=== PATIENT | female | born 1990 | race American Indian/Alaskan Native ===

== ENCOUNTER 2018-05-10 08:24 | Emergency (ER) | payer MEDICAID ==
[2018-05-10 08:56] VITALS: BP 125/90
--- NOTE | 2018-05-10 10:11 | Emergency Department Report ---
ED Female HPI - General Chief complaint: Abdominal Pain Stated complaint: STOMACH PAIN Time Seen by Provider: 05/10/18 10:10 Source: patient Mode of arrival: Ambulatory Limitations: No Limitations - History of Present Illness Initial comments: This is a 27-year-old female here report vaginal discharge with follow up. She admits to having unsafe sex and she wants to be tested and treated for STD. She denies any urinary burning or frequency in reporting abdominal cramping. No alleviating or exacerbating factors. Pain as located to pelvic area and it is 2 out of 10 and intermittent. Denies any vaginal bleeding. No medication taken prior to coming to the emergency room MD Complaint: vaginal discharge, pelvic pain, possible STD Onset/Timin -: week(s) Location: suprapubic Radiation: non-radiating Severity: mild Severity scale (0 -10): 3 Quality: cramping Consistency: intermittent Improves with: none Worsens with: none Are you Now?: No Last Menstrual Period: 04/28/18 EDC: 02/02/19 Associated Symptoms: vaginal discharge, abdominal pain. denies: vaginal bleeding, nausea/vomiting, fever/chills, headaches, loss of appetite, dysuria, hematuria, rash, seizure, shortness of breath, syncope, weakness - Related Data Sexually active: Yes Previous Rx's Medication Instructions Recorded Last Taken Type metroNIDAZOLE [Flagyl] 500 mg PO Q12HR 7 Days #14 tab 05/10/18 Unknown Rx Allergies Allergy/AdvReac Type Severity Reaction Status Date / Time Latex, Natural Rubber Allergy Swelling Verified 05/10/18 08:56 ED Review of Systems ROS: Stated complaint: STOMACH PAIN Other details as noted in HPI Constitutional: denies: chills, fever ENT: denies: throat pain, congestion Respiratory: denies: cough, shortness of breath, SOB with exertion, SOB at rest , wheezing Cardiovascular: denies: chest pain, palpitations, edema, syncope Gastrointestinal: abdominal pain. denies: nausea, vomiting, diarrhea, constipation Genitourinary: discharge. denies: urgency, dysuria, frequency, hematuria, abnormal menses, dyspareunia Musculoskeletal: denies: back pain, joint swelling, arthralgia Skin: denies: rash, lesions Neurological: denies: headache ED Past Medical Hx - Past Medical History Previous Medical History?: No - Surgical History Past Surgical History?: Yes Additional Surgical History: , LEEP, hernia - Family History Family history: hypertension - Social History Smoking Status: Current Every Day Smoker Substance Use Type: None - Medications Home Medications: Home Medications Medication Instructions Recorded Confirmed Last Taken Type metroNIDAZOLE [Flagyl] 500 mg PO Q12HR 7 Days #14 tab 05/10/18 Unknown Rx ED Physical Exam - General Limitations: No Limitations General appearance: alert, in no apparent distress - Head Head exam: Present: atraumatic, normocephalic, normal inspection - Eye Eye exam: Present: normal appearance, PERRL, EOMI Pupils: Present: normal accommodation - ENT ENT exam: Present: normal exam, normal orophraynx, mucous membranes moist, TM's normal bilaterally, normal external ear exam - Neck Neck exam: Present: normal inspection, full ROM. Absent: tenderness, lymphadenopathy - Respiratory Respiratory exam: Present: normal lung sounds bilaterally. Absent: respiratory distress, chest wall tenderness - Cardiovascular Cardiovascular Exam: Present: regular rate, normal rhythm, normal heart sounds. Absent: systolic murmur, diastolic murmur - GI/Abdominal GI/Abdominal exam: Present: soft, normal bowel sounds. Absent: distended, tenderness, guarding, rebound, rigid, organomegaly - External exam: Present: normal external exam. Absent: erythema, swelling, lesions, lacerations, ecchymosis, bleeding Speculum exam: Present: vaginal discharge, cervical discharge. Absent: normal speculum exam, erythema, vaginal bleeding, foreign body, tissue, laceration Bi-manual exam: Present: normal bi-manual exam. Absent: cervical motion tendernes, adnexal tenderness, uterine enlargement, uterine tenderness - Extremities Exam Extremities exam: Present: normal inspection, full ROM, normal capillary refill , other (No cce. + 2 pulses in all extremities, no neurovascular compromise). Absent: tenderness, pedal edema, joint swelling, calf tenderness - Back Exam Back exam: Present: normal inspection, full ROM. Absent: CVA tenderness (R), CVA tenderness (L) - Neurological Exam Neurological exam: Present: alert, oriented X3, normal gait - Psychiatric Psychiatric exam: Present: normal affect, normal mood - Skin Skin exam: Present: warm, dry, intact, normal color. Absent: rash ED Course Vital Signs 05/10/18 08:53 Temperature 98.6 F Pulse Rate 82 Respiratory 17 Rate Blood Pressure 125/90 O2 Sat by Pulse 99 Oximetry - Reevaluation(s) Reevaluation #1: 05/10/18 12:35 Patient given Rocephin 250 mg IM for gonorrhea and azithromycin 1 g by mouth to treat chlamydia. She chose to be treated empirically. She had blood prep that showed less than 20% himself and negative for Trichomonas and yeast. CHL is pending ED Medical Decision Making - Lab Data Lab Results 05/10/18 Range/Units 10:57 Urine Color Straw (Yellow) Urine Turbidity Clear (Clear) Urine pH 5.0 (5.0-7.0) Ur Specific [place] 1.035 H (1.003-1.030) Urine Protein <15 mg/dl (Negative) mg/dL Urine Glucose (UA) Negative (Negative) mg/dL Urine Ketones Negative (Negative) mg/dL Urine Blood Negative (Negative) Urine Nitrite Negative (Negative) Ur Reducing Substances Not Reportable Urine Bilirubin Negative (Negative) Urine Ictotest Not Reportable Urine Urobilinogen 0.0 (<2.0) mg/dL Ur Leukocyte Esterase Negative (Negative) Urine WBC (Auto) 1.0 (0.0-6.0) /HPF Urine RBC (Auto) 3.0 (0.0-6.0) /HPF U Epithel Cells (Auto) 4.0 (0-13.0) /HPF Hyaline Casts 1 /LPF Urine Mucus 3+ /HPF Urine HCG, Qual Negative (Negative) - Radiology Data Radiology results: report reviewed - Medical Decision Making This is a 27-year-old female here report that she had a vaginal discharge for the last 3 weeks. She has intermittent pelvic pain. Denies any vaginal bleeding . She requested intestine and treatment for STD. Was seen and examined by myself and physical exam is normal except pelvic exam shows patient with mild fishy odor to her vaginal area with which yellowish discharge on Cervix and in vaginal vault otherwise pelvic exam is normal. Urinalysis negative except for 3+ mucus and elevated specific gravity which indicates patient needs to increase her fluid intake. Gonorrhea and chlamydia test is pending. Wet prep less than 20% clue cells, negative for yeast and negative Trichomonas. Patient treated empirically in emergency room for gonorrhea and chlamydia with Rocephin 250 mg IM and a azithromycin 1 g by mouth without any adverse reaction. I discussed the patient her laboratory results and medications given. Also told her she needs to return to medical records department to retrieve her Gonorrhea and chlamydia test results and if they come back test positive she will need to follow up with the health department in 7-10 days from today to have retesting done. She will voice understanding. Discharged home with prescription for Flagyl, vital signs she is afebrile and nontoxic in appearance. Critical care attestation.: If time is entered above; I have spent that time in minutes in the direct care of this critically ill patient, excluding procedure time. ED Disposition Clinical Impression: Bacterial vaginosis, Vaginal discharge, Concern about STD in female without diagnosis, Pelvic pain Disposition: TO HOME OR SELFCARE Is pt being admited?: No Does the pt Need Aspirin: No Condition: Stable Instructions: Bacterial Vaginosis (ED), Sexually Transmitted Diseases (ED), Safe Sex (ED), Abdominal Pain (ED) Additional Instructions: Please follow up with [facility] or health Department for follow- up STDs in 7-10 days Take Medication as prescribed Please refrain from sexual activity until he get your gonorrhea and chlamydia test intact. This will be available for U3 to 5 days. You can come to medical records department twice a day and get results and for solids is positive he will need to get retested at the health Department or [facility] Practice safe sex Let your Partner know you for treated for STD and emergency room and they will need to get tested Prescriptions: metroNIDAZOLE [Flagyl] 500 mg PO Q12HR 7 Days #14 tab [facility]errals: [facility] [Outside] - 7-10 days [facility] [Outside] - 7-10 days Forms: STI Treatment and Prevention, Work/School Release Form(ED)
[2018-05-10 11:40] LABS: HCG Qualitative,Urine Negative (Negative)
[2018-05-10 12:01] LABS: Hyaline Casts,Urine 1 /LPF; Mucus,Urine 3+ /HPF
[2018-05-10] MEDS ORDERED: ZITHROMAX PO ONE (12:04)
[2018-05-10] MEDS ORDERED: ROCEPHIN IM ONE (12:04)
[2018-05-10] MEDS ORDERED: XYLOCAINE 1% MPF 5 mL INFILTRATI ONE (12:04)
[2018-05-10 12:16] LABS: Bilirubin,Urine Negative (Negative); Blood,Urine Negative (Negative); Color,Urine Straw (Yellow)
[2018-05-10 12:17] LABS: Protein,Urine <15 mg/dL mg/dL (Negative)
== END 2018-05-10 12:31 | disposition home or self-care (01) ==
LOC: ED 08:24
DX: N76.0 Acute vaginitis (principal); F17.200 Nicotine dependence, unspecified, uncomplicated; Z20.2 Contact with and (suspected) exposure to infections with a predominantly sexual mode of transmission; Z91.040 Latex allergy status
CPT/HCPCS: 81001; 81025; 87210; 87591; 96372; 99284; J0696

== ENCOUNTER 2018-05-22 10:30 | Emergency (ER) | payer MEDICAID ==
[2018-05-22 10:39] VITALS: BP 136/80
--- NOTE | 2018-05-22 11:51 | Emergency Department Report ---
ED Extremity Problem HPI - General Chief complaint: Extremity Injury, Upper Stated complaint: WRIST/NUMB PAIN Time Seen by Provider: 05/22/18 11:39 Source: patient Mode of arrival: Ambulatory Limitations: No Limitations - History of Present Illness Initial comments: Patient is a 27-year-old female who is complaining of bilateral wrist pain. 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 This been present for the last 3 days she's been doing this job for approximately a week. The patient denies any fevers chills nausea vomiting diarrhea. Patient states there is no trauma. Patient states that the numbness and tingling is mostly in the first 3 fingers. - Related Data Previous Rx's Medication Instructions Recorded Last Taken Type metroNIDAZOLE [Flagyl] 500 mg PO Q12HR 7 Days #14 tab 05/10/18 Unknown Rx methOCARBAMOL [Robaxin TAB] 500 mg PO Q6H PRN #15 tablet 05/22/18 Unknown Rx predniSONE [Deltasone] 20 mg PO QDAY #5 tab 05/22/18 Unknown Rx traMADol [Ultram] 50 mg PO Q6HR PRN #10 tablet 05/22/18 Unknown Rx Allergies Allergy/AdvReac Type Severity Reaction Status Date / Time Latex, Natural Rubber Allergy Swelling Verified 05/22/18 10:36 ED Review of Systems ROS: Stated complaint: WRIST/NUMB PAIN Other details as noted in HPI Comment: All other systems reviewed and negative ED Past Medical Hx - Past Medical History Previous Medical History?: No - Surgical History Additional Surgical History: , LEEP, hernia - Social History Smoking Status: Current Every Day Smoker Substance Use Type: None - Medications Home Medications: Home Medications Medication Instructions Recorded Confirmed Last Taken Type metroNIDAZOLE [Flagyl] 500 mg PO Q12HR 7 Days #14 tab 05/10/18 Unknown Rx methOCARBAMOL [Robaxin TAB] 500 mg PO Q6H PRN #15 tablet 05/22/18 Unknown Rx predniSONE [Deltasone] 20 mg PO QDAY #5 tab 05/22/18 Unknown Rx traMADol [Ultram] 50 mg PO Q6HR PRN #10 tablet 05/22/18 Unknown Rx ED Physical Exam - General Limitations: No Limitations General appearance: alert, in no apparent distress - Head Head exam: Present: atraumatic, normocephalic - Eye Eye exam: Present: normal appearance - ENT ENT exam: Present: mucous membranes moist - Neck Neck exam: Present: normal inspection - Respiratory Respiratory exam: Present: normal lung sounds bilaterally. Absent: respiratory distress, wheezes, rales, rhonchi - Cardiovascular Cardiovascular Exam: Present: regular rate, normal rhythm. Absent: systolic murmur, diastolic murmur, rubs, gallop - GI/Abdominal GI/Abdominal exam: Present: soft, normal bowel sounds. Absent: distended, tenderness, guarding, rebound - Extremities Exam Extremities exam: Present: normal inspection - Back Exam Back exam: Present: normal inspection - Neurological Exam Neurological exam: Present: alert, oriented X3 - Psychiatric Psychiatric exam: Present: normal affect, normal mood - Skin Skin exam: Present: warm, dry, intact, normal color. Absent: rash ED Course Vital Signs 05/22/18 10:36 Temperature 99.5 F Pulse Rate 91 H Respiratory 18 Rate Blood Pressure 136/80 O2 Sat by Pulse 99 Oximetry ED Medical Decision Making - Medical Decision Making Patient clinically has carpal tunnel syndrome. Patient will be placed in bilateral wrist splints and will be discharged home with follow-up with orthopedics. Critical care attestation.: If time is entered above; I have spent that time in minutes in the direct care of this critically ill patient, excluding procedure time. ED Disposition Clinical Impression: Carpal tunnel syndrome Qualifiers: Laterality: bilateral Qualified Code(s): G56.03 - Carpal tunnel syndrome, bilateral upper limbs Disposition: TO HOME OR SELFCARE Is pt being admited?: No Does the pt Need Aspirin: No Condition: Stable Instructions: Carpal Tunnel Syndrome (ED) Referrals: PRIMARY CARE, [Primary Care Provider] - 3-5 Days LILO LUNA MD [Staff Physician] - 3-5 Days Time of Disposition: 11:51
== END 2018-05-22 12:34 | disposition home or self-care (01) ==
LOC: ED 10:30
DX: G56.03 Carpal tunnel syndrome, bilateral upper limbs (principal); F17.200 Nicotine dependence, unspecified, uncomplicated; Z91.040 Latex allergy status

== ENCOUNTER 2018-06-15 08:12 | Emergency (ER) | payer MEDICAID ==
[2018-06-15 09:17] VITALS: BP 128/74
[2018-06-15 10:16] LABS: HCG Qualitative,Urine Negative (Negative)
[2018-06-15 10:18] LABS: Bilirubin,Urine NEG (Negative); Blood,Urine NEG (Negative); Color,Urine Yellow (Yellow); Mucus,Urine FEW /HPF; Protein,Urine <15 mg/dL mg/dL (Negative); Urobilinogen,Urine < 2.0 mg/dL (<2.0)
[2018-06-15 10:21] LABS: WBC,Urine < 1.0 /HPF (0.0-6.0)
--- NOTE | 2018-06-15 10:29 | Emergency Department Report ---
ED Female HPI - General Chief complaint: Urogenital-Female Stated complaint: VAGINAL DISCHARGE Source: patient Mode of arrival: Ambulatory Limitations: No Limitations - History of Present Illness Initial comments: This is a 27-year-old female who presents with vaginal discharge and lower abdominal pain for 2 weeks. Patient states she was seen here 4 weeks ago with similar symptoms and started on antibiotics which improved symptoms for about 2 weeks. She reports vaginal discharge with foul odor and lower abdominal pain. Last menstrual period 05/29/2018, A0. She denies dysuria , STD exposure, frequency, urgency, low back pain. MD Complaint: vaginal discharge, pelvic pain Onset/Timin -: week(s) Location: suprapubic Radiation: non-radiating Severity: mild Severity scale (0 -10): 2 Quality: cramping Consistency: intermittent Improves with: none Worsens with: none Are you Now?: No Last Menstrual Period: 05/29/18 EDC: 03/05/19 Associated Symptoms: vaginal discharge, abdominal pain. denies: vaginal bleeding, nausea/vomiting, fever/chills, headaches, loss of appetite, dysuria, hematuria, rash, seizure, shortness of breath, syncope, weakness - Related Data Sexually active: Yes : 2 Para: 2 A: 0 Previous Rx's Medication Instructions Recorded Last Taken Type metroNIDAZOLE [Flagyl] 500 mg PO Q12HR 7 Days #14 tab 05/10/18 Unknown Rx methOCARBAMOL [Robaxin TAB] 500 mg PO Q6H PRN #15 tablet 05/22/18 Unknown Rx predniSONE [Deltasone] 20 mg PO QDAY #5 tab 05/22/18 Unknown Rx traMADol [Ultram] 50 mg PO Q6HR PRN #10 tablet 05/22/18 Unknown Rx Clindamycin [Clindamycin CAP] 300 mg PO BID #14 cap 06/15/18 Unknown Rx Fluconazole [Diflucan] 150 mg PO DAILY #2 tablet 06/15/18 Unknown Rx Allergies Allergy/AdvReac Type Severity Reaction Status Date / Time Latex, Natural Rubber Allergy Swelling Verified 05/22/18 10:36 ED Review of Systems ROS: Stated complaint: VAGINAL DISCHARGE Other details as noted in HPI Constitutional: denies: chills, fever Respiratory: denies: cough, shortness of breath, wheezing Cardiovascular: denies: chest pain, palpitations Gastrointestinal: abdominal pain (lower abdominal pain). denies: nausea, vomiting, diarrhea Genitourinary: discharge. denies: urgency, dysuria Musculoskeletal: denies: back pain, joint swelling, arthralgia Neurological: denies: headache, weakness, paresthesias Psychiatric: denies: anxiety, depression ED Past Medical Hx - Past Medical History Previous Medical History?: No - Surgical History Past Surgical History?: Yes Additional Surgical History: , LEEP, hernia - Social History Smoking Status: Current Every Day Smoker Substance Use Type: None - Medications Home Medications: Home Medications Medication Instructions Recorded Confirmed Last Taken Type metroNIDAZOLE [Flagyl] 500 mg PO Q12HR 7 Days #14 tab 05/10/18 Unknown Rx methOCARBAMOL [Robaxin TAB] 500 mg PO Q6H PRN #15 tablet 05/22/18 Unknown Rx predniSONE [Deltasone] 20 mg PO QDAY #5 tab 05/22/18 Unknown Rx traMADol [Ultram] 50 mg PO Q6HR PRN #10 tablet 05/22/18 Unknown Rx Clindamycin [Clindamycin CAP] 300 mg PO BID #14 cap 06/15/18 Unknown Rx Fluconazole [Diflucan] 150 mg PO DAILY #2 tablet 06/15/18 Unknown Rx ED Physical Exam - General Limitations: No Limitations General appearance: alert, in no apparent distress, obese - Respiratory Respiratory exam: Present: normal lung sounds bilaterally. Absent: respiratory distress - Cardiovascular Cardiovascular Exam: Present: regular rate, normal rhythm. Absent: systolic murmur, diastolic murmur, rubs, gallop - GI/Abdominal GI/Abdominal exam: Present: soft, normal bowel sounds. Absent: distended, tenderness, guarding, rebound, rigid, organomegaly, mass, bruit - External exam: Present: normal external exam Speculum exam: Present: vaginal discharge (malodorous white curdy discharge). Absent: erythema, cervical discharge, vaginal bleeding, foreign body, tissue, laceration Bi-manual exam: Present: normal bi-manual exam - Back Exam Back exam: Present: normal inspection - Neurological Exam Neurological exam: Present: alert, oriented X3 - Psychiatric Psychiatric exam: Present: normal affect, normal mood - Skin Skin exam: Present: warm, dry, intact, normal color. Absent: rash ED Course Vital Signs 06/15/18 09:14 Temperature 98.9 F Pulse Rate 81 Respiratory 16 Rate Blood Pressure 128/74 O2 Sat by Pulse 100 Oximetry ED Medical Decision Making - Lab Data Lab Results 06/15/18 Range/Units 09:38 Urine Color Yellow (Yellow) Urine Turbidity Clear (Clear) Urine pH 5.0 (5.0-7.0) Ur Specific [place] 1.017 (1.003-1.030) Urine Protein <15 mg/dl (Negative) mg/dL Urine Glucose (UA) Neg (Negative) mg/dL Urine Ketones Neg (Negative) mg/dL Urine Blood Neg (Negative) Urine Nitrite Neg (Negative) Ur Reducing Substances Not Reportable Urine Bilirubin Neg (Negative) Urine Ictotest Not Reportable Urine Urobilinogen < 2.0 (<2.0) mg/dL Ur Leukocyte Esterase Neg (Negative) Urine WBC (Auto) < 1.0 (0.0-6.0) /HPF Urine RBC (Auto) 1.0 (0.0-6.0) /HPF U Epithel Cells (Auto) 1.0 (0-13.0) /HPF Urine Mucus Few /HPF Urine HCG, Qual Negative (Negative) - Medical Decision Making Patient was examined by me in fast track ER. Vitals are stable and in no acute distress. Labs obtained. Urinalysis and urine hCG are normal. Wet prep obtained via pelvic exam. Wet prep positive for clue cells and yeast, negative Trichomonas. Start clindamycin and Diflucan for acute vaginitis. Discharged home in stable condition. Discussed prevention options. F/U with PCP or Health Department. Critical care attestation.: If time is entered above; I have spent that time in minutes in the direct care of this critically ill patient, excluding procedure time. ED Disposition Clinical Impression: Bacterial vaginitis, Vulvovaginal candidiasis, Vaginal discharge Disposition: DC-01 TO HOME OR SELFCARE Is pt being admited?: No Does the pt Need Aspirin: No Condition: Stable Instructions: Bacterial Vaginosis (ED), Vulvovaginal Candidiasis (ED) Additional Instructions: Complete full course of antibiotics as prescribed. Avoid drinking alcohol while taking antibiotics and for 24 hours after completion. Follow up with Primary Care Provider or health department if symptoms are not improving as discussed. Prescriptions: Clindamycin [Clindamycin CAP] 300 mg PO BID #14 cap Fluconazole [Diflucan] 150 mg PO DAILY #2 tablet Referrals: PHILIP CARDENAS MD [Primary Care Provider] - 3-5 Days [facility] [Outside] - 3-5 Days [facility] [Outside] - 3-5 Days Forms: STI Treatment and Prevention Time of Disposition: 11:25 Print Language: TAMAZIGHT
== END 2018-06-15 11:38 | disposition home or self-care (01) ==
LOC: ED 08:12
DX: N76.0 Acute vaginitis (principal); B37.3 Candidiasis of vulva and vagina; F17.200 Nicotine dependence, unspecified, uncomplicated; Z91.040 Latex allergy status
CPT/HCPCS: 81001; 81025; 87210; 99284